=== PATIENT | male | born 1995 | race Caucasian/White ===

== ENCOUNTER 2023-05-18 22:01 | Emergency (ER) | payer SELFPAY ==
[~2023-05-18] VITALS: Ht 185.4 cm; Wt 80.0 kg
[2023-05-18 22:26] VITALS: BP 129/78; PULSE 75; RESP 16; TEMP 98.3; O2SAT 98
== END 2023-05-19 00:26 | disposition left against medical advice (07) ==
LOC: ER 22:01
DX: S63.255A Unspecified dislocation of left ring finger, initial encounter (principal); X58.XXXA Exposure to other specified factors, initial encounter; Y93.89 Activity, other specified; Y92.89 Other specified places as the place of occurrence of the external cause; Y99.8 Other external cause status
CPT/HCPCS: 26770; 73140; 99284